=== PATIENT | female | born 1935 | race Caucasian/White ===

== ENCOUNTER 2021-02-24 18:01 | Emergency (ER) | payer MEDICARE ==
[~2021-02-24] VITALS: Ht 157.5 cm; Wt 46.3 kg
== END 2021-02-24 20:56 | disposition home or self-care (01) ==
LOC: ER 18:01
DX: S30.0XXA Contusion of lower back and pelvis, initial encounter (principal); S80.12XA Contusion of left lower leg, initial encounter; W19.XXXA Unspecified fall, initial encounter
CPT/HCPCS: 72220; 73590; 99283-25; A9270

== ENCOUNTER → 2021-02-28 | Outpatient (CLI) | payer MEDICARE ==
[~2021-02-28] MED LIST: ELIQUIS2.5 MG; HYDCHL25 PO
== END | disposition home or self-care (01) ==
LOC: LAB SHORT 10:01
DX: R39.15 Urgency of urination (principal)
CPT/HCPCS: 87077; 87086; 87186

== ENCOUNTER 2021-03-03 09:44 | Emergency (ER) | payer MEDICARE ==
[~2021-03-03] VITALS: Ht 160 cm; Wt 46.3 kg
[2021-03-03] MEDS ORDERED: ELIQUIS2.5 MG PO (10:01)
[2021-03-03 10:31] LABS: BASOPHILS ABSOLUTE AUTO 0.07 K/mm3 (0.00-0.23); BASOPHILS PERCENT AUTO 1 % (0-2); EOSINOPHILS ABSOLUTE AUTO 0.13 K/mm3 (0.00-0.68); EOSINOPHILS PERCENT AUTO 1 % (0-6); Hematocrit 45.9 % (33.0-51.0); Hemoglobin 15.2 g/dL (11.5-16.0); IMMATURE GRAN ABSOLUTE AUTO 0.04 K/mm3 (0.00-0.10); IMMATURE GRAN PERCENT AUTO 0 % (0-1); LYMPHOCYTES ABSOLUTE AUTO 1.46 K/mm3 (0.84-5.20); LYMPHOCYTES PERCENT AUTO 16 % (21-46); MONOCYTES ABSOLUTE AUTO 0.66 K/mm3 (0.16-1.47); MONOCYTES PERCENT AUTO 7 % (4-13); Mean Corpuscular HGB 30.5 pg (26.0-34.0); Mean Corpuscular HGB Conc 33.1 g/dL (31.5-36.5); Mean Corpuscular Volume 92 fL (80-100); Mean Platelet Volume 9.3 fL (9.1-12.4); NEUTROPHILS ABSOLUTE AUTO 6.94 K/mm3 (1.96-9.15); NEUTROPHILS PERCENT AUTO 75 % (41-73); Platelet Count 264 K/mm3 (150-400); RDW Coefficient Variation 13.1 % (11.7-14.2); RDW Standard Deviation 43.9 fL (35.1-46.3); Red Blood Cell Count 4.99 M/mm3 (3.80-5.20)
[2021-03-03 10:44] LABS: Source, Urine Catheter
[2021-03-03 10:48] LABS: Appearance, Urine Clear (Clear); Bilirubin, Urine Neg (Neg); Blood, Urine Neg (Neg); Color, Urine Yellow (P-Yellow); Glucose Qualitative, Urine Neg (Neg); Ketones, Urine 1+ (Neg); Leukocyte Esterase, Urine Neg (Neg); Nitrite, Urine Neg (Neg); Protein, Urine 2+ (Neg); Urobilinogen, Urine NORM (Normal)
[2021-03-03 10:53] LABS: Albumin, Blood 3.4 g/dL (3.4-5.0); Albumin/Globulin Ratio 1.1 (0.8-1.8); Bilirubin, Total 1.3 mg/dL (0.1-1.0); Bun/Creatinine Ratio 19.9 (12.0-20.0); Calcium, Blood 8.7 mg/dL (8.5-10.1); Creatinine, Blood 1.66 mg/dL (0.40-1.00); Globulin, Blood 3.1 g/dL (2.2-4.0); Potassium, Blood 5.2 mmol/L (3.5-5.5); Total Protein, Blood 6.5 g/dL (6.4-8.2)
[2021-03-03 10:55] LABS: Amorphous Mod (0-Heavy); Bacteria Mod /hpf; Mucus Mod (0-Heavy)
[2021-03-03 10:56] LABS: Red Blood Cells, Urine 0-2 /hpf (0-2); Squamous Epithelial Cells Rare /hpf (Few); White Blood Cells, Urine 0-2 /hpf (0-5)
[2021-03-03] MEDS ORDERED: HYDCHL25 PO (12:40)
== END 2021-03-03 12:55 | disposition home or self-care (01) ==
LOC: ER 09:44
PROVIDERS: Emergency Medicine
DX: I50.30 Unspecified diastolic (congestive) heart failure (principal); R41.0 Disorientation, unspecified; Z90.710 Acquired absence of both cervix and uterus
CPT/HCPCS: 36415; 71045; 80053; 81001; 83880; 85025; 87086; 93005; 93010

== ENCOUNTER 2021-03-06 01:58 | Inpatient (IN) | payer MEDICARE ==
[~2021-03-06] VITALS: Ht 157.5 cm; Wt 58.7 kg
[~2021-03-06 01:58] MED LIST changes: -ELIQUIS2.5 MG; +ELIQUIS2.5 MG PO
[2021-03-06 02:31] LABS: BASOPHILS ABSOLUTE AUTO 0.08 K/mm3 (0.00-0.23); BASOPHILS PERCENT AUTO 1 % (0-2); EOSINOPHILS ABSOLUTE AUTO 0.23 K/mm3 (0.00-0.68); EOSINOPHILS PERCENT AUTO 3 % (0-6); Hematocrit 44.8 % (33.0-51.0); IMMATURE GRAN ABSOLUTE AUTO 0.02 K/mm3 (0.00-0.10); IMMATURE GRAN PERCENT AUTO 0 % (0-1); LYMPHOCYTES PERCENT AUTO 12 % (21-46); MONOCYTES ABSOLUTE AUTO 0.85 K/mm3 (0.16-1.47); MONOCYTES PERCENT AUTO 10 % (4-13); Mean Corpuscular HGB 30.5 pg (26.0-34.0); Mean Corpuscular HGB Conc 33.5 g/dL (31.5-36.5); Mean Corpuscular Volume 91 fL (80-100); NEUTROPHILS ABSOLUTE AUTO 6.37 K/mm3 (1.96-9.15); NEUTROPHILS PERCENT AUTO 75 % (41-73); Platelet Count 246 K/mm3 (150-400); RDW Coefficient Variation 13.1 % (11.7-14.2); RDW Standard Deviation 43.3 fL (35.1-46.3); Red Blood Cell Count 4.91 M/mm3 (3.80-5.20); White Blood Cell Count 8.55 K/mm3 (4.00-11.30)
[2021-03-06] MEDS ORDERED: Nitrofurantoin100 M1 PO (02:54)
[2021-03-06 03:03] LABS: Albumin, Blood 3.1 g/dL (3.4-5.0); Bilirubin, Total 1.1 mg/dL (0.1-1.0); Bun/Creatinine Ratio 24.3 (12.0-20.0); Calcium, Blood 8.7 mg/dL (8.5-10.1); Creatinine, Blood 1.4 mg/dL (0.40-1.00); Potassium, Blood 4.4 mmol/L (3.5-5.5); Total Protein, Blood 6.1 g/dL (6.4-8.2)
[2021-03-06 03:27] LABS: Troponin I 0.046 ng/mL (0.000-0.040)
[2021-03-06 05:33] LABS: Magnesium, Blood 2.4 mg/dL (1.6-2.4)
[2021-03-06 07:29] LABS: Influenza A, PCR NEGATIVE (NEGATIVE); Influenza B, PCR NEGATIVE (NEGATIVE); SARS-Cov-2 (COVID-19) PCR, MMC NEGATIVE (NEGATIVE)
[2021-03-06 07:32] LABS: Resp Syncytial Virus, PCR POSITIVE (NEGATIVE)
[2021-03-06 10:44] LABS: Source, Urine Straight Cath
[2021-03-06 11:00] LABS: Appearance, Urine Clear (Clear); Bilirubin, Urine Neg (Neg); Blood, Urine Neg (Neg); Glucose Qualitative, Urine Neg (Neg); Ketones, Urine Neg (Neg); Leukocyte Esterase, Urine Neg (Neg); Nitrite, Urine Neg (Neg); Protein, Urine Neg (Neg); Urobilinogen, Urine NORM (Normal)
[2021-03-06 11:24] LABS: Color, Urine Pale Yellow (P-Yellow)
[2021-03-06] MEDS ORDERED: DORZOLAMIDE 2%10 M3 BOTHEYES (16:54)
[2021-03-06] MEDS ORDERED: LATA.005SO BOTHEYES (16:55)
[2021-03-06] MEDS ORDERED: DILT180 (16:57)
--- NOTE | 2021-03-07 04:02 | NUR ---
SHIFT SUMMARY PATIENT HAD NO ACUTE CHANGES OBSERVED. AXOX 2 FORGETFUL. BEDREST. TAKES MEDICATION ONE AT A TIME WITH WATER. PIV REMAINS INTACT. SURVEY SUPERVISOR REPORTS A-FIB 97. FLUID RESTRICTIONS 1,500mL. VSS/AFEBRILE. HARSH PRODUCTIVE COUGH. RT IN FOR BREATHING TX. DENIES PAIN AND N/V. CALL LIGHT IN REACH. BED IN LOWEST POSITION. WILL CONTINUE TO MONITOR UNTIL DAY SHIFT NURSE ASSUMES CARE.
[2021-03-07 06:27] LABS: Bun/Creatinine Ratio 20.2 (12.0-20.0); Calcium, Blood 8.3 mg/dL (8.5-10.1); Creatinine, Blood 1.29 mg/dL (0.40-1.00); Potassium, Blood 3.3 mmol/L (3.5-5.5)
--- NOTE | 2021-03-07 15:13 | NUR ---
Spiritual care visit conducted. Patient is sitting up in bed and alert. Patient immediately tells me about life growing up as a brat and the greatness of her father's career. She aslo shares about her one daughter James and the divorce from her father(who was also ) years ago. James and her Ward are patient's caregivers and patient is quite sure that they work hard for her best interest. She explains about her [employer] and what it means to her in times of illness and struggle. I normalize patient's experience, facilitated a life review and encouraged self-care. PAtient responds well and shows signs of an elevated mood. I will continue to remain available to patient and family.
--- NOTE | 2021-03-07 16:57 | NUR ---
PT HAS NO ACUTE CHANGES. PT AOX2 WITH CONFUSION. PT DOES NOT USE CALL LIGHT AND CALLS OUT. PT IS INCONTENT AND VOIDS LARGE AMOUNTS. NO DISTRESS NOTED AT THIS TIME WILL CALL OUT FOR DAUGHTER RANDOMLY. WILL CONTINUE TO MONITOR.
--- NOTE | 2021-03-08 03:30 | NUR ---
SHIFT SUMMARY NO ACUTE CHANGES TO PT CONDITION. PT CONTINUES TO BE PLEASANTLY CONFUSED. SHE DOES NOT USE HER CALL LIGHT AND WILL CALL OUT FOR ASSISTANCE. CALL LIGHT IS WITHIN HER REACH. PT ON TELE, NO O2. SHE COMPLAINS THAT SHE HAS R FOOT/ANKLE PAIN IF SHE MOVES IT TOO MUCH. PT DECLINES NEED FOR MEDICATION.
[2021-03-08 06:00] LABS: Bun/Creatinine Ratio 19.5 (12.0-20.0); Calcium, Blood 8.4 mg/dL (8.5-10.1); Creatinine, Blood 1.28 mg/dL (0.40-1.00); Potassium, Blood 4.1 mmol/L (3.5-5.5)
[2021-03-08 17:32] LABS: Source, Urine Foley catheter
[2021-03-08 17:35] LABS: Appearance, Urine Clear (Clear); Bilirubin, Urine Neg (Neg); Blood, Urine Neg (Neg); Color, Urine Yellow (P-Yellow); Glucose Qualitative, Urine Neg (Neg); Ketones, Urine Neg (Neg); Leukocyte Esterase, Urine Neg (Neg); Nitrite, Urine Neg (Neg); Protein, Urine Neg (Neg); Urobilinogen, Urine NORM (Normal)
--- NOTE | 2021-03-08 17:36 | NUR ---
85 Y F ADMITTED WITH ACUTE CHF. PT IS A&O 2-3, FORETFULL AT TIMES BUT EASILTY REORIENTED AND REDIRECTED. PT HAS BEEN PLEASANT AND COOPERATIVE WITH CARE AND UP TO CHAIR, BSC AND BATHROOM FREQUENTLY WITH SBA AND FWW. 14F CRONIN CATH INSERTED TODAY TO OBTAIN ACCURATE I&O'S, PT TOELRATED PROCEDURE WELL. DISCUSSED D/C PLANS WITH DAUGHTER OVER THE PHONE AND DAUGHTER REPORTS SHE WILL BE RETURNIING FROM [place] T[place] AFTERNOON AND IS EXPECTING PATIENT TO BE ABLE TO RETURN TO [facility] LIVING WITH CAREGIVERS BID. DISCUSSED POTENTIAL NEED FOR LIZZETTE OR EVEN POOSIBLE MEMORY CARE. DAUGHTER WAS RECEPTIVE BUT STATED SHE WOULD PREFER FOR HER MOM TO RETURN HOME AND WORK WITH PRIMARY CARE AN OUTPAITEN TO DETERMINE IF HIGHER LEVEL OF CARE NEEDED OVER THE NEXT FEW WEEK. NO OTHER CHANES TO REPORT THIS SHIFT.
--- NOTE | 2021-03-09 05:51 | NUR ---
SHIFT SUMMARY 85 YR F ADMITTED ON 03/06/21 FOR CHF. FULL CODE. POSITIVE FOR RSV. SHE HAS DIMINSHED LUNG SOUNDS AND A WET COUGH. SHE IS ON A 1500 ML FLUID RESTRICTION. TELE W/ AFIB IN THE 70'S. 1 PERSON ASSIST TO BEDSIDE COMMODE. SHE IS SWEET AND QUIET AND COOPERATIVE. WHEN READY SHE WILL DISCHARGE BACK TO [facility].
[2021-03-09 05:56] LABS: Calcium, Blood 7.9 mg/dL (8.5-10.1); Creatinine, Blood 1.23 mg/dL (0.40-1.00); Potassium, Blood 3.7 mmol/L (3.5-5.5)
--- NOTE | 2021-03-09 17:36 | NUR ---
SHIFT SUMMARY PATIENT DENIES PAIN, NAUSEA, AND SHORTNESS OF BREATH. PATIENT IS A&O X2, OCCASSIONALLY KNOWS THE SITUATION. PATIENT IS PLEASANTLY CONFUSED. PATIENT IS A [place] TO [place] [facility] [place] CRONIN IS PATENT AND DRAINING TO GRAVITY. PATIENT IS EATING AND DRINKING WELL. PATIENT WAS UP TO CHAIR FOR ALL MEALS TODAY. PATIENT IS PLEASANT AND COOPERATIVE WITH CARE.
--- NOTE | 2021-03-10 05:30 | NUR ---
SHIFT SUMMARY 85 YR FEMALE ADMITTED ON 03/06/21 FOR ACUTE CHF. SHE RECENTLY M[place] AND HAS BEEN LIVING AT [facility]. SHE IS VERY CONFUSED MOST OF THE TIME BUT HAS MOMENTS WHERE SHE IS LUCID AND KNOWS WHERE SHE IS. SHE HAS COMPLAINED AND CRIED OUT MULTIPLE TIMES ABOUT PAIN IN HER RIGHT FOOT WHICH IS EDEMOUS AND VERY RED. ELEVATING THE FOOT HELPED AND DOC WAS CALLED FOR PAIN MANAGEMENT AND ORDER FOR TRAMADOL WAS PUT IN. PT WAS ABLE TO GET SOME REST AFTER RECEIVING IT. CASE MANAGEMENT IS WORKING W/ PY'S DAUGHTER IN REGARDS TO PLACEMENT.
[2021-03-10 05:56] LABS: Bun/Creatinine Ratio 23.5 (12.0-20.0); Calcium, Blood 8.3 mg/dL (8.5-10.1); Creatinine, Blood 1.15 mg/dL (0.40-1.00); Potassium, Blood 3.8 mmol/L (3.5-5.5)
--- NOTE | 2021-03-10 16:36 | NUR ---
SHIFT SUMMARY PATIENT DENIES PAIN, NAUSEA, AND SHORTNESS OF BREATH. PATIENT IS A SBA FOR TRANSFERS. PATIENT WAS MORE ORIENTED TODAY, SHE KNEW WHERE SHE WAS. PATIENT DID NOT CALL OUT TODAY. PATIENTS DAUGHTER VISITED IN AFTERNOON. PALLIATIVE CARE CONTACTED FOR EDUCATION ABOUT POLST FORM. PATIENT IS EATING AND DRINKING WELL. PATIENT IS PLEASANT AND COOPERATIVE WITH CARE.
--- NOTE | 2021-03-10 18:29 | NUR ---
PHYSICIAN CONTACT CODE STATUS CHANGED TO DNR PER DAUGHTER WHO IS THE MEDICAL POA. DR. YOUNG NOTIFIED. NEW ORDERS FOR DNR. PURPLE DNR BAND PLACED ON RIGHT WRIST.
--- NOTE | 2021-03-11 05:30 | NUR ---
SHIFT SUMMARY 85 YR F ADMITTED ON 03/06/21 FOR ACUTE CHF. FULL CODE. PT HAS BEEN CONFUSED SINCE SHE GOT HERE AND AT TIMES IS NOT ORIENTED AT ALL. AT OTHER TIMES SHE IS ORIENTED TO PERSON, PLACE, AND EVENT. DAUGHTER RAFA LIVES OUT OF STATE BUT IS WORKING WITH CASE MANAGEMENT TO GET PT RETURNED TO [facility]. PT C/O RIGHT FOOT PAIN WHICH SEEMS TO BE ATTRIBUTED TO EDEMA. PAIN MEDS PER MAR SEEM TO CONTROL THE PAIN.
[2021-03-11 06:11] LABS: Albumin, Blood 2.4 g/dL (3.4-5.0); Anion Gap 5 mmol/L (6-16); Blood Urea Nitrogen 28 mg/dL (8-24); Bun/Creatinine Ratio 24.3 (12.0-20.0); CO2, Blood 29 mmol/L (21-32); Calcium, Blood 7.7 mg/dL (8.5-10.1); Chloride, Blood 97 mmol/L (98-108); Creatinine, Blood 1.15 mg/dL (0.40-1.00); Glomerular Filtration Rate 45 (60-); Glucose, Blood 100 mg/dL (70-99); Magnesium, Blood 2.1 mg/dL (1.6-2.4); Phosphorus, Blood 3.4 mg/dL (2.5-4.9); Potassium, Blood 4.1 mmol/L (3.5-5.5); Sodium, Blood 131 mmol/L (136-145)
[2021-03-11] MEDS ORDERED: TYLENOL325 M1 PO (11:43)
[2021-03-11] MEDS ORDERED: FURO40 PO (11:43)
[2021-03-11] MEDS ORDERED: TOPROL XL25 MG PO (11:44)
[2021-03-11] MEDS ORDERED: POTA10T PO (11:44)
[2021-03-11] MEDS ORDERED: LISI5 PO (11:45)
--- NOTE | 2021-03-11 12:59 | NUR ---
DISCHARGE DISCHARGE INSTRUCTIONS, MEDICATION LIST AND FOLLOW UP APPOINTMENT REVIEWED WITH PT AND HER DAUGHTER CHRISTOPHER. QUESTIONS/CONCERNS ANSWERED. BOTH PT AND CHRISTOPHER VERBALLY INDICATED UNDERSTANDING OF ALL INSTRUCTIONS RECEIVED. ESCORTED OUT VIA W/C BY JAYDE
== END 2021-03-11 13:08 | DRG 291 ==
LOC: ER 01:58 → MEDS 05:22 → ERHOLD 05:22 → MEDS 16:12 → ENPENDDIS 03-11 11:06 → MEDS 03-11 13:08
PROVIDERS: Family Medicine; Student in an Organized Health Care Education/Training Program; ADMIT Family Medicine
DX: I11.0 Hypertensive heart disease with heart failure (principal); I50.41 Acute combined systolic (congestive) and diastolic (congestive) heart failure; N17.9 Acute kidney failure, unspecified; R05.9 Cough, unspecified; E87.1 Hypo-osmolality and hyponatremia; I48.91 Unspecified atrial fibrillation; E87.6 Hypokalemia; B97.4 Respiratory syncytial virus as the cause of diseases classified elsewhere; Z88.0 Allergy status to penicillin; Z90.49 Acquired absence of other specified parts of digestive tract; Z90.710 Acquired absence of both cervix and uterus; Z79.899 Other long term (current) drug therapy; R41.82 Altered mental status, unspecified; Z20.822 Contact with and (suspected) exposure to COVID-19; R79.89 Other specified abnormal findings of blood chemistry
CPT/HCPCS: 0241U; 36415; 71045; 71046; 73630; 80048; 80053; 80069; 81003; 83735; 83880; 84132; 84145; 84484; 84550; 85025; 93005; 93010; 93306; 94640; 94644; 94760; 96365; 96375; 97110; 97116; 97162; 97165; 97530; 97535; 99285-25; A9270; J0360; J0696; J1940

== ENCOUNTER 2021-05-03 12:01 | Emergency (ER) | payer MEDICARE ==
[~2021-05-03] VITALS: Ht 162.6 cm; Wt 49.9 kg
[~2021-05-03 12:01] MED LIST changes: +DILT180; +DORZOLAMIDE 2%10 M3 BOTHEYES; +FURO40 PO; +LATA.005SO BOTHEYES; +LISI5 PO; +Nitrofurantoin100 M1 PO; +POTA10T PO; +TOPROL XL25 MG PO; +TYLENOL325 M1 PO
[2021-05-03] MEDS ORDERED: ALLO100 PO (12:16)
[2021-05-03] MEDS ORDERED: HYDHCL25 PO (12:17)
[2021-05-03 12:39] LABS: Source, Urine Straight Cath
[2021-05-03 12:47] LABS: BASOPHILS ABSOLUTE AUTO 0.08 K/mm3 (0.00-0.23); BASOPHILS PERCENT AUTO 1 % (0-2); EOSINOPHILS PERCENT AUTO 4 % (0-6); Hematocrit 47.5 % (33.0-51.0); Hemoglobin 15.5 g/dL (11.5-16.0); IMMATURE GRAN ABSOLUTE AUTO 0.07 K/mm3 (0.00-0.10); IMMATURE GRAN PERCENT AUTO 1 % (0-1); LYMPHOCYTES ABSOLUTE AUTO 0.73 K/mm3 (0.84-5.20); LYMPHOCYTES PERCENT AUTO 8 % (21-46); MONOCYTES ABSOLUTE AUTO 0.39 K/mm3 (0.16-1.47); MONOCYTES PERCENT AUTO 4 % (4-13); Mean Corpuscular HGB 29.8 pg (26.0-34.0); Mean Corpuscular HGB Conc 32.6 g/dL (31.5-36.5); Mean Corpuscular Volume 91 fL (80-100); Mean Platelet Volume 9.8 fL (9.1-12.4); NEUTROPHILS ABSOLUTE AUTO 7.67 K/mm3 (1.96-9.15); NEUTROPHILS PERCENT AUTO 82 % (41-73); Platelet Count 319 K/mm3 (150-400); RDW Coefficient Variation 16.4 % (11.7-14.2); RDW Standard Deviation 53.7 fL (35.1-46.3); Red Blood Cell Count 5.21 M/mm3 (3.80-5.20); White Blood Cell Count 9.34 K/mm3 (4.00-11.30)
[2021-05-03 12:50] LABS: Appearance, Urine Clear (Clear); Bilirubin, Urine Neg (Neg); Blood, Urine Neg (Neg); Color, Urine Yellow (P-Yellow); Glucose Qualitative, Urine Neg (Neg); Ketones, Urine Neg (Neg); Leukocyte Esterase, Urine 1+ (Neg); Nitrite, Urine Pos (Neg); Protein, Urine Neg (Neg); Specific Gravity, Urine 1.015 (1.003-1.022); Urobilinogen, Urine NORM (Normal)
[2021-05-03 12:58] LABS: Albumin, Blood 3.3 g/dL (3.4-5.0); Albumin/Globulin Ratio 0.8 (0.8-1.8); Bilirubin, Total 0.7 mg/dL (0.1-1.0); Calcium, Blood 9.5 mg/dL (8.5-10.1); Creatinine, Blood 2.08 mg/dL (0.40-1.00); Globulin, Blood 4.4 g/dL (2.2-4.0); Potassium, Blood 4.7 mmol/L (3.5-5.5); Total Protein, Blood 7.7 g/dL (6.4-8.2)
[2021-05-03 13:01] LABS: Amorphous Light (0-Heavy); Bacteria Many /hpf; Mucus Light (0-Heavy); Red Blood Cells, Urine Not Seen /hpf (0-2); Squamous Epithelial Cells Rare /hpf (Few)
[2021-05-03] MEDS ORDERED: Bactrim Ds Tab1 EACH PO (13:46)
== END 2021-05-03 15:35 | disposition home or self-care (01) ==
LOC: ER 12:01
PROVIDERS: Emergency Medicine
DX: N39.0 Urinary tract infection, site not specified (principal); R41.82 Altered mental status, unspecified; I13.0 Hypertensive heart and chronic kidney disease with heart failure and stage 1 through stage 4 chronic kidney disease, or unspecified chronic kidney disease; N18.9 Chronic kidney disease, unspecified; I50.9 Heart failure, unspecified; I48.91 Unspecified atrial fibrillation; Z88.0 Allergy status to penicillin; Z79.899 Other long term (current) drug therapy
CPT/HCPCS: 36415; 70450; 80053; 81001; 85025; 87077; 87086; 87186; 93005; 93010; 99285-25; A9270; P9612

== ENCOUNTER 2021-05-14 20:50 | Inpatient (IN) | payer MEDICARE ==
[~2021-05-14] VITALS: Ht 160 cm; Wt 54.4 kg
[~2021-05-14 20:50] MED LIST changes: +ALLO100 PO; +Bactrim Ds Tab1 EACH PO; +HYDHCL25 PO
[2021-05-14 22:10] LABS: BASOPHILS ABSOLUTE AUTO 0.06 K/mm3 (0.00-0.23); BASOPHILS PERCENT AUTO 1 % (0-2); EOSINOPHILS ABSOLUTE AUTO 0.35 K/mm3 (0.00-0.68); EOSINOPHILS PERCENT AUTO 5 % (0-6); Hemoglobin 13.1 g/dL (11.5-16.0); IMMATURE GRAN ABSOLUTE AUTO 0.02 K/mm3 (0.00-0.10); IMMATURE GRAN PERCENT AUTO 0 % (0-1); LYMPHOCYTES ABSOLUTE AUTO 1.06 K/mm3 (0.84-5.20); LYMPHOCYTES PERCENT AUTO 14 % (21-46); MONOCYTES ABSOLUTE AUTO 0.42 K/mm3 (0.16-1.47); MONOCYTES PERCENT AUTO 6 % (4-13); Mean Corpuscular HGB 29.6 pg (26.0-34.0); Mean Corpuscular HGB Conc 33.6 g/dL (31.5-36.5); Mean Corpuscular Volume 88 fL (80-100); Mean Platelet Volume 10.2 fL (9.1-12.4); NEUTROPHILS ABSOLUTE AUTO 5.78 K/mm3 (1.96-9.15); NEUTROPHILS PERCENT AUTO 75 % (41-73); Platelet Count 221 K/mm3 (150-400); RDW Coefficient Variation 16.7 % (11.7-14.2); RDW Standard Deviation 53.6 fL (35.1-46.3); Red Blood Cell Count 4.42 M/mm3 (3.80-5.20); White Blood Cell Count 7.69 K/mm3 (4.00-11.30)
[2021-05-14 22:40] LABS: Magnesium, Blood 3.4 mg/dL (1.6-2.4)
[2021-05-14 22:43] LABS: Bun/Creatinine Ratio 35.2 (12.0-20.0); Calcium, Blood 8.9 mg/dL (8.5-10.1); Creatinine, Blood 5.48 mg/dL (0.40-1.00); Potassium, Blood 6.1 mmol/L (3.5-5.5)
[2021-05-15] MEDS ORDERED: Hydroxyzine HCl50 MG PO (01:42)
--- NOTE | 2021-05-15 03:16 | NUR ---
RECEIVED PATIENT TO UNIT ABOUT 0210. ALERT TO SELF. NO ACUTE DISTRESS NOTED, RESPIRATIONS EVEN AND UNLABORED, BILATERAL LUNG SOUNDS CEAR, RA. SKIN C/D/I. ORIENTED PATIENT TO ROOM AND CALL LIU. SAFETY MAINTAINED.
[2021-05-15 04:46] LABS: BASOPHILS ABSOLUTE AUTO 0.06 K/mm3 (0.00-0.23); BASOPHILS PERCENT AUTO 1 % (0-2); EOSINOPHILS ABSOLUTE AUTO 0.46 K/mm3 (0.00-0.68); EOSINOPHILS PERCENT AUTO 6 % (0-6); Hematocrit 37.5 % (33.0-51.0); Hemoglobin 12.9 g/dL (11.5-16.0); IMMATURE GRAN ABSOLUTE AUTO 0.02 K/mm3 (0.00-0.10); IMMATURE GRAN PERCENT AUTO 0 % (0-1); LYMPHOCYTES PERCENT AUTO 17 % (21-46); MONOCYTES ABSOLUTE AUTO 0.48 K/mm3 (0.16-1.47); MONOCYTES PERCENT AUTO 7 % (4-13); Mean Corpuscular HGB 30.2 pg (26.0-34.0); Mean Corpuscular HGB Conc 34.4 g/dL (31.5-36.5); Mean Corpuscular Volume 88 fL (80-100); Mean Platelet Volume 10.3 fL (9.1-12.4); NEUTROPHILS ABSOLUTE AUTO 5.07 K/mm3 (1.96-9.15); NEUTROPHILS PERCENT AUTO 70 % (41-73); Platelet Count 198 K/mm3 (150-400); RDW Coefficient Variation 16.5 % (11.7-14.2); Red Blood Cell Count 4.27 M/mm3 (3.80-5.20); White Blood Cell Count 7.29 K/mm3 (4.00-11.30)
[2021-05-15 05:17] LABS: Albumin, Blood 2.8 g/dL (3.4-5.0); Albumin/Globulin Ratio 0.8 (0.8-1.8); Bilirubin, Total 0.5 mg/dL (0.1-1.0); Calcium, Blood 8.4 mg/dL (8.5-10.1); Creatinine, Blood 4.67 mg/dL (0.40-1.00); Globulin, Blood 3.6 g/dL (2.2-4.0); Potassium, Blood 4.7 mmol/L (3.5-5.5); Total Protein, Blood 6.4 g/dL (6.4-8.2)
--- NOTE | 2021-05-15 05:46 | NUR ---
ALERT TO SELF. NO ACUTE DISTRESS, RESPIRATIONS EVEN AND UNLABORED. STATES SHES HAVING DISCOMFORT, MEDICATED WITH TYLENOL 650MG PO, EFFECTIVE RELIEF. ABLE TO TURN AND REPOSITION SELF, NEEDS ALOT OF CUEING. CURRENTLY RESTING PEACEFULLY IN BED, SAFETY MAINTAINED, CALL LIU IN REACH.
--- NOTE | 2021-05-15 10:55 | NUR ---
Initial Visit: Palliative Care Consult for End of Life/Comfort Care 85 year old female admitted for Acute Kidney Injury. Pt medical history and comorbidities include: CKD, UTIs, Dementia, CHF, and Afib. Pt resting in bed and is pleasantly confused. Pt A&O to self only. Pt denies pain, dyspnea, and anxiety at this time. Reorientated Pt including place, reason for stay, and current year. Pt states she does not have an appetite and just wants to sleep. Ended visit to allow Pt to rest. Called facility RN Ni at [facility]. Ni reports Pt has lived at facility for approximately 2 months. Initialy Pt did well and was minimal assist with her ADLs. Pt has been showing significant decline since initial move. Ni states Pt is basicaly bed bound, and requires assistance with all her ADLs. Pt has poor appetite as well. Ni reports requesting hospice referral from Pt's PCP. Called and spoke with Pt's daughter Lelo (POA). Provided update and engaged in therapeutic conversation regarding goals of care. Lelo reports having prepared for hospice. Educated on hospice and comfort care philosophy with V/U made by Lelo. Lelo reports Pt would want to focus on comfort and quality of life at this stage in her life and elects comfort care and hospice. Discussed hospice agencies to choose from. Lelo reports Pt had [facility] in the past stating a good experience with agency. Lelo reports choice is [facility]. Lelo expresses appreciation and reports no other concerns at this time. Spoke with Dr Culp and discussed case. Placed order for comfort care, comfort care order set, D/C maintenance medications, and hospice referral per V/O from Dr Culp. PPS 30% ADLs 6/6 FAST 7C Palliative Care will remain available.
--- NOTE | 2021-05-15 17:00 | NUR ---
PATIENT SWITCHED TO COMFORT CARE WITH POSSIBLE D'C TOMORROW. IV'S PATENT. PATIENT HAS A WHINEY YELL WHEN TOUCHED. PER DAUGHTER THIS IS NORMAL. PATIENT HAS STATED SHE "JUST WANTS TO SLEEP FOREVER." DAUGHTER STS SHE HAS HEARD SOMETHING LIKE THAT BEFORE. PATIENT C/O PAIN WHEN GROIN AREA CLEANED WITH CRONIN PLACED PER PATIENT REQUEST. DRAINING YELLOW URINE. PATIENT MOVES HERSELF IN BED. [facility]
--- NOTE | 2021-05-16 04:23 | NUR ---
SHIFT SUMMARY PATIENT CRYING AND GRUNTING C/O PAIN GENERAL PAIN EMESIS X1 WITH FOOD PARTICLES PRN ROXANOL ADM WITH RELIEF TURN AND REPOSTION PO FLUIDS OFFERED CRONIN DRAINING PEARL URINE.PT CONT COMFORT CARE
--- NOTE | 2021-05-16 07:33 | NUR ---
TALKED TO ABOUT NAUSEA AND CHANGING SOME MEDS TO IV. OK FOR ZOFRAN 4MG Q4 IV PRN, ATIVAN 0.5 MG Q4 IV PRN AND HALDODL 1-2 MG Q4 PRN.
--- NOTE | 2021-05-16 10:57 | NUR ---
REPORT TO CHEL RN AT [facility]. ANSWER ALL QUESTIONS. VERBALIZES UNDERSTANDING. IV'S WILL BE TAKEN OUT PRIOR TO LEAVING. TENTATIVE D'C 1230 VIA CART.
[2021-05-16] MEDS ORDERED: HALOPERIDOL2 MG/1 M1 PO (11:45)
[2021-05-16] MEDS ORDERED: HALDOL5 MG/1 M1 IV (11:46)
[2021-05-16] MEDS ORDERED: Ativan1 MG PO (11:46)
[2021-05-16] MEDS ORDERED: ATIVAN4 MG/1 ML IV (11:47)
[2021-05-16] MEDS ORDERED: MORP20L SL (11:48)
[2021-05-16] MEDS ORDERED: ONDANSETRON4 MG/2 ML IV (11:50)
--- NOTE | 2021-05-16 12:49 | NUR ---
resting comfortably at this time. no n/v. awaiting transport.
--- NOTE | 2021-05-16 12:59 | NUR ---
UPDATED MED LIST PUT IN TO GO PACKET.
--- NOTE | 2021-05-16 14:40 | NUR ---
AMBULANCE HERE TO TAKE PATIENT BACK TO [facility]
== END 2021-05-16 14:40 | DRG 314 ==
LOC: ER 20:50 → MEDS 05-15 02:00
PROVIDERS: Family Medicine; Student in an Organized Health Care Education/Training Program; ADMIT Internal Medicine
DX: I95.9 Hypotension, unspecified (principal); I50.43 Acute on chronic combined systolic (congestive) and diastolic (congestive) heart failure; N17.9 Acute kidney failure, unspecified; R64 Cachexia; I13.0 Hypertensive heart and chronic kidney disease with heart failure and stage 1 through stage 4 chronic kidney disease, or unspecified chronic kidney disease; E44.0 Moderate protein-calorie malnutrition; Z51.5 Encounter for palliative care; Z66 Do not resuscitate; I48.20 Chronic atrial fibrillation, unspecified; M1A.9XX0 Chronic gout, unspecified, without tophus (tophi); R62.7 Adult failure to thrive; E86.0 Dehydration; N18.9 Chronic kidney disease, unspecified; F03.90 Unspecified dementia, unspecified severity, without behavioral disturbance, psychotic disturbance, mood disturbance, and anxiety; Z88.0 Allergy status to penicillin; Z79.01 Long term (current) use of anticoagulants; Z90.49 Acquired absence of other specified parts of digestive tract; Z90.710 Acquired absence of both cervix and uterus; Z79.899 Other long term (current) drug therapy; Z87.440 Personal history of urinary (tract) infections; Z68.21 Body mass index [BMI] 21.0-21.9, adult
CPT/HCPCS: 36415; 80048; 80053; 83735; 84132; 85025; 93005; 93010; 96374; 96375; 99285-25; A9270; J1815; J2060; J2405; J7030; J7060; J7799